=== PATIENT | female | born 1985 | race Caucasian/White ===

== ENCOUNTER 2019-04-05 12:42 | Emergency (ER) | payer OTHER ==
[~2019-04-05] VITALS: Ht 172.7 cm; Wt 57.0 kg
--- NOTE | 2019-04-05 14:30 | NUR ---
relieving RN for break, chemical lab technician at bedside, pt did amb with steady gait to restroom, UA sent to lab to hold, no orders yet
--- NOTE | 2019-04-05 14:34 | NUR ---
Berna pinon in [facility] - 04/05/19 at [address] TAYLOR AWARE NO IV ACCESS AT THIS TIME
[2019-04-05 14:42] LABS: BASOPHILS % (AUTO) 0.6 % (0-1); EOSINOPHILS # (AUTO) 0.2 X10'3 (0-0.9); EOSINOPHILS % (AUTO) 2.1 % (0-6); HEMATOCRIT 41.9 % (35.0-45.0); HEMOGLOBIN 14.3 g/dl (12.0-16.0); LYMPHOCYTES # (AUTO) 1.6 X10'3 (1.1-4.8); LYMPHOCYTES % (AUTO) 21.1 % (21-51); MEAN CORPUSCULAR HEMOGLOBIN 30.4 PG (27.0-31.0); MEAN CORPUSCULAR HGB CONC 34.2 g/dL (33.0-36.5); MEAN CORPUSCULAR VOLUME 88.9 FL (78-98); MEAN PLATELET VOLUME 7.9 FL (7.4-10.4); MONOCYTES # (AUTO) 0.7 X10'3 (0-0.9); MONOCYTES % (AUTO) 9.6 % (2-12); NEUTROPHILS # (AUTO) 4.9 X10'3 (1.8-7.7); NEUTROPHILS % (AUTO) 66.6 % (42-75); PLATELET COUNT 258 X10'3 (140-440); RED BLOOD COUNT 4.72 X10'6 (4.20-5.60); RED CELL DISTRIBUTION WIDTH 12.6 % (11.5-14.5); WHITE BLOOD COUNT 7.4 X10'3 (4.5-11.0)
[2019-04-05 15:02] LABS: ALANINE AMINOTRANSFERASE 30 U/L (12-78); ALBUMIN 4.5 G/DL (3.4-5.0); ALBUMIN/GLOBULIN RATIO 1.3 (1.1-1.5); ALKALINE PHOSPHATASE 68 IU/L (46-116); ANION GAP 9 (8-16); ASPARTATE AMINO TRANSFERASE 18 U/L (10-37); BILIRUBIN,TOTAL 0.7 MG/DL (0.1-1.0); BLOOD UREA NITROGEN 10 MG/DL (7-18); BUN/CREATININE RATIO 13.2 (6.6-38.0); CHLORIDE 104 MMOL/L (99-107); CREATININE 0.76 MG/DL (0.40-0.90); GLUCOSE 90 MG/DL (70-104); POTASSIUM 3.1 MMOL/L (3.5-5.1); SODIUM 142 MMOL/L (135-145); TOTAL CARBON DIOXIDE 29.4 MMOL/L (24-32); TOTAL PROTEIN 8.1 G/DL (6.4-8.2); eGFR 87 ML/MIN
[2019-04-05 15:07] LABS: HCG SERUM QL NEGATIVE
[2019-04-05 15:18] LABS: URINE AMPHETAMINE SCREEN NEGATIVE (Neg); URINE BARBITUATE SCREEN NEGATIVE (Neg); URINE BENZODIAZEPINES SCREEN NEGATIVE (Neg); URINE CANNABINOID SCREEN NEGATIVE (Neg); URINE COCAINE SCREEN NEGATIVE (Neg); URINE METHADONE SCREEN NEGATIVE (Neg); URINE OPIATE SCREEN NEGATIVE (Neg); URINE PHENCYCLIDINE SCREEN NEGATIVE (Neg)
[2019-04-05] MEDS ORDERED: potassium Cl 20 mEq SR tablet PO STA (15:18)
[2019-04-05 16:03] VITALS: BP 121/85
== END 2019-04-05 16:06 | disposition home or self-care (01) ==
LOC: ER 12:43
DX: G43.409 Hemiplegic migraine, not intractable, without status migrainosus (principal); R00.0 Tachycardia, unspecified; R42 Dizziness and giddiness
CPT/HCPCS: 36415; 80053; 80305; 84443; 84484; 84703; 85025; 93005; 99284

== ENCOUNTER 2020-03-24 13:45 | Outpatient (CLI) | payer MEDICAID ==
[2020-03-24 14:37] LABS: BASOPHILS % (AUTO) 0.6 % (0-1); EOSINOPHILS # (AUTO) 0.3 X10'3 (0-0.9); EOSINOPHILS % (AUTO) 3.8 % (0-6); HEMATOCRIT 40.5 % (35.0-45.0); HEMOGLOBIN 13.8 g/dl (12.0-16.0); LYMPHOCYTES # (AUTO) 2.3 X10'3 (1.1-4.8); LYMPHOCYTES % (AUTO) 31.9 % (21-51); MEAN CORPUSCULAR HEMOGLOBIN 30.4 PG (27.0-31.0); MEAN CORPUSCULAR VOLUME 89.6 FL (78-98); MEAN PLATELET VOLUME 8.5 FL (7.4-10.4); MONOCYTES # (AUTO) 0.8 X10'3 (0-0.9); MONOCYTES % (AUTO) 10.7 % (2-12); NEUTROPHILS # (AUTO) 3.7 X10'3 (1.8-7.7); PLATELET COUNT 296 X10'3 (140-440); RED BLOOD COUNT 4.52 X10'6 (4.20-5.60); WHITE BLOOD COUNT 7.1 X10'3 (4.5-11.0)
[2020-03-24 14:48] LABS: ALBUMIN 4.3 G/DL (3.4-5.0); ANION GAP 7 (8-16); BLOOD UREA NITROGEN 11 MG/DL (7-18); BUN/CREATININE RATIO 12.8 (6.6-38.0); CALCIUM 9.4 MG/DL (8.5-10.1); CHLORIDE 107 MMOL/L (99-107); CREATININE 0.86 MG/DL (0.40-0.90); GLUCOSE 93 MG/DL (70-104); POTASSIUM 3.2 MMOL/L (3.5-5.1); SODIUM 146 MMOL/L (135-145); eGFR 75 ML/MIN
== END 2020-03-24 23:59 | disposition home or self-care (01) ==
LOC: LAB 13:45
PROVIDERS: ATTEND Podiatrist Foot & Ankle Surgery
DX: Z01.812 Encounter for preprocedural laboratory examination (principal); N39.0 Urinary tract infection, site not specified; E55.9 Vitamin D deficiency, unspecified
CPT/HCPCS: 36415; 80048; 85025

== ENCOUNTER 2020-07-16 05:55 | Day surgery (SDC) | payer MEDICAID ==
[2020-07-09 10:58] LABS: BASOPHILS % (AUTO) 0.8 % (0-1); EOSINOPHILS # (AUTO) 0.3 X10'3 (0-0.9); EOSINOPHILS % (AUTO) 4.9 % (0-6); LYMPHOCYTES # (AUTO) 1.3 X10'3 (1.1-4.8); LYMPHOCYTES % (AUTO) 20.4 % (21-51); MEAN CORPUSCULAR HEMOGLOBIN 29.8 PG (27.0-31.0); MEAN CORPUSCULAR HGB CONC 33.3 g/dL (33.0-36.5); MEAN CORPUSCULAR VOLUME 89.7 FL (78-98); MEAN PLATELET VOLUME 8.3 FL (7.4-10.4); MONOCYTES # (AUTO) 0.5 X10'3 (0-0.9); MONOCYTES % (AUTO) 8.1 % (2-12); NEUTROPHILS # (AUTO) 4.1 X10'3 (1.8-7.7); NEUTROPHILS % (AUTO) 65.8 % (42-75); PRE OP HEMATOCRIT 42.6 % (35.0-45.0); PRE OP HEMOGLOBIN 14.2 g/dL (12.0-16.0); PRE OP PLATELET COUNT 275 X10'3 (140-440); RED BLOOD COUNT 4.75 X10'6 (4.20-5.60); RED CELL DISTRIBUTION WIDTH 13.4 % (11.5-14.5)
[2020-07-09 11:01] LABS: ALBUMIN 4.2 G/DL (3.4-5.0); ALBUMIN/GLOBULIN RATIO 1.2 (1.1-1.5); ALKALINE PHOSPHATASE 79 IU/L (46-116); BLOOD UREA NITROGEN 11 MG/DL (7-18); BUN/CREATININE RATIO 14.7 (6.6-38.0); CALCIUM 8.9 MG/DL (8.5-10.1); CHLORIDE 106 MMOL/L (99-107); CREATININE 0.75 MG/DL (0.40-0.90); PRE OP ALT 19 U/L (30-65); PRE OP ANION GAP 7 (8-16); PRE OP AST 16 U/L (10-37); PRE OP BILIRUB, TOTAL 0.5 MG/DL (0.0-1.0); PRE OP GLUCOSE 99 MG/DL (70-104); PRE OP POTASSIUM 4.6 MMOL/L (3.4-5.1); PRE OP SODIUM 141 MMOL/L (135-145); TOTAL CARBON DIOXIDE 28.3 MMOL/L (24-32); TOTAL PROTEIN 7.8 G/DL (6.4-8.2); eGFR 88 ML/MIN
[2020-07-09 11:06] LABS: HCG SERUM QL NEGATIVE
[~2020-07-16] VITALS: Ht 172.7 cm; Wt 62.0 kg
[2020-07-16] VITALS (10 sets, daily range): BP systolic 93–130; BP diastolic 52–77
[~2020-07-16 05:55] MED LIST: CETI10TA14 PO; CYCL5TAB PO; DOCUMENT DATE & TIME OF BETA-BLOCKER PO ONE; GABA300C PO; METO-384 PO; ONDA8TAB13 PO; OXYC1TAB17 PO; RIVA20TA PO; SOLR150T PO; ceFAZolin 2gm in dextrose, iso 50 ML IV ONE; famotidine 20mg tablet PO ONE; ringers solution, lacted 1,000 ML IV SCH
[2020-07-16] MEDS ORDERED: bacitracin 15gm ointment TP ONE (06:40)
[2020-07-16] MEDS ORDERED: ondansetron/PF 4mg/2ml inj ONE (06:46)
[2020-07-16] MEDS ORDERED: midazolam 1 mg/ML 2ml injection ONE (06:46)
[2020-07-16] MEDS ORDERED: fentaNYL/PF 50MCG/1 ML 2ML syringe ONE ×2 (06:46→09:59)
[2020-07-16] MEDS ORDERED: dexamethasone sod phosphate 4mg/ml inj. ONE (06:46)
[2020-07-16] MEDS ORDERED: propofol inj 20 ML IV ONE (06:47)
[2020-07-16] MEDS ORDERED: LIDOcaine 2% (20mg/ml) 5ml vial ONE (06:47)
[2020-07-16] MEDS ORDERED: sevoflurane 250ml liquid IH ONE (06:54)
[2020-07-16] MEDS ORDERED: dexmedetomidin/NS 400mcg/100mL bag IV ONE (06:54)
[2020-07-16] MEDS ORDERED: proCHLORperazine 10 MG/2 ml inj IV PRN (06:55)
[2020-07-16] MEDS ORDERED: ringers solution, lacted 1,000 ML IV SCH (06:55)
[2020-07-16] MEDS ORDERED: labetalol 20mg/4ml (5mg/ml) syringe IV PRN (06:55)
[2020-07-16] MEDS ORDERED: fentaNYL/PF 50MCG/1 ML 2ML syringe IV PRN ×2 (06:55)
[2020-07-16] MEDS ORDERED: hydrALAZINE 20mg/ml inj. IV PRN (06:55)
[2020-07-16] MEDS ORDERED: ketorolac trometh. 30mg/ml inj. IV ONE (06:55)
[2020-07-16] MEDS ORDERED: ondansetron/PF 4mg/2ml inj IV PRN (06:55)
[2020-07-16] MEDS ORDERED: ROPIVAcaine 0.5% (5mg/ml) 30ml vial ONE ×2 (07:00)
[2020-07-16] MEDS ORDERED: ROPIVAcaine 0.2% (10 MG/5 ML) BOLUS INJECTION POPLITEAL PRN (07:00)
[2020-07-16] MEDS ORDERED: ROPIVAcaine 0.2%/PF PUMP/bolus 550 ML POPLITEAL SCH (07:45)
[2020-07-16] MEDS ORDERED: ketorolac trometh. 30mg/ml inj. ONE (09:53)
[2020-07-16] MEDS ORDERED: acetaminophen 1,000mg/100ml IV 100 ML IV ONE (09:54)
--- NOTE | 2020-07-16 10:20 | NUR ---
Received from OR via [facility], accompanied by Anesthesiologist CAROL and report given by Anesthesiolgist. PT. AROUSABLE TO VERBAL STIMULI. O2 AT 10 L VIA FACE MASK. VSS. DENIES PAIN AT THIS TIME. IV 18G IN RIGHT AC. CDI. LR INFUSING AT 100 ML/HR. Miller TANG DRESSING CDI, ELEVATED ABOVE HEART. WARM TOES AND GOOD CAP REFILL NOTED. ON Q CATHETER IN PLACE IN RIGHT THIGH. CDI. Addendum: 07/16/20 at 1048 by Nya Neumann RN Amended: Links added.
--- NOTE | 2020-07-16 11:14 | NUR ---
Received from OR via [facility], accompanied by Anesthesiologist BECK and report given by Anesthesiolgist. PT. VSS. 3 L O2 VIA MASK. LR INFUSING INTO R. HAND 18 G. IV. SITE CDI. L. WRIST DRESSING CDI. FINGERS WARM WITH GOOD CAP REFILL. PT. DENIES PAIN. ALERT. MOVES ALL EXTREMITIES, SENSATION INTACT. DENTURES/ GLASSES ON [place]. ICE BAG APPLIED. WRIST ABOVE HEART. Addendum: 07/16/20 at 1210 by Nya Neumann RN Amended: Links added.
--- NOTE | 2020-07-16 12:00 | NUR ---
PT. DISCHARGED TO DAD VIA WC TO FRONT ENTRANCE ACCOMPANIED BY NURSE. PT. DENIED PAIN, VSS. IV REMOVED. DRESSING ON R. LE CDI. WARM AND SENSATION POSITIVE. ON Q PUMP IN PLACE. INSTRUCTIONS PROVIDED ALONG WITH ALL OTHER DISCHARGE INSTRUCTIONS, PT STATES UNDERSTANDING. PT. LEFT WITH PURSE, IOLD HARDWARE ALL INSTRUCTIONS. OPPORTUNITY PROVIDED FOR QUESTIONS. ALL QUESTIONS ANSWERED. MD WILL BE NOTIFIED THAT PT REQUESTS PHONE CALL WHEN AVAILABLE. ALL DISCHARGE CRITERIA MET. Addendum: 07/16/20 at 1208 by Nya Neumann RN Amended: Links added.
== END 2020-07-16 12:00 | disposition home or self-care (01) ==
LOC: PAS 05:55
PROVIDERS: ATTEND Podiatrist Foot & Ankle Surgery
DX: M25.371 Other instability, right ankle (principal); M65.871 Other synovitis and tenosynovitis, right ankle and foot; T84.84XA Pain due to internal orthopedic prosthetic devices, implants and grafts, initial encounter; M77.31 Calcaneal spur, right foot; G89.18 Other acute postprocedural pain; M21.41 Flat foot [pes planus] (acquired), right foot; J45.909 Unspecified asthma, uncomplicated; G43.909 Migraine, unspecified, not intractable, without status migrainosus; F41.9 Anxiety disorder, unspecified; G89.4 Chronic pain syndrome; Z86.711 Personal history of pulmonary embolism; Z79.899 Other long term (current) drug therapy; Z88.8 Allergy status to other drugs, medicaments and biological substances; Z88.5 Allergy status to narcotic agent; Z91.040 Latex allergy status; Z86.718 Personal history of other venous thrombosis and embolism; Z98.890 Other specified postprocedural states; Z20.822 Contact with and (suspected) exposure to COVID-19; Y83.8 Other surgical procedures as the cause of abnormal reaction of the patient, or of later complication, without mention of misadventure at the time of the procedure; Y92.89 Other specified places as the place of occurrence of the external cause
CPT/HCPCS: 20680; 27698; 28119; 28300; 29895; 36415; 64446; 64448; 73620; 76000; 76937; 80053; 82948; 84703; 85025; A6222; A6223; C1713; C1762; J0131; J1100; J1885; J2001; J2250; J2405; J2704; J2795; J3010; J7120; U0003; A4618; A6449; A7000

== ENCOUNTER 2021-06-03 11:34 | Emergency (ER) | payer MEDICAID ==
[~2021-06-03] VITALS: Ht 172.7 cm; Wt 61.0 kg
[~2021-06-03 11:34] MED LIST changes: -DOCUMENT DATE & TIME OF BETA-BLOCKER PO ONE; -ceFAZolin 2gm in dextrose, iso 50 ML IV ONE; -famotidine 20mg tablet PO ONE; -ringers solution, lacted 1,000 ML IV SCH
[2021-06-03 11:46] VITALS: BP 121/75
[2021-06-03] MEDS ORDERED: ketorolac trometh inj. 60 MG/2 ML VIAL IM ONE (12:35)
[2021-06-03] MEDS ORDERED: cyclobenzaprine 10mg tablet PO ONE (12:35)
== END 2021-06-03 13:34 | disposition home or self-care (01) ==
LOC: ER 11:34
DX: M54.50 Low back pain, unspecified (principal); G89.29 Other chronic pain; Z98.890 Other specified postprocedural states; Z79.899 Other long term (current) drug therapy
CPT/HCPCS: 96372; 99283; J1885

== ENCOUNTER 2021-09-26 19:04 | Emergency (ER) | payer MEDICAID ==
[~2021-09-26] VITALS: Ht 172.7 cm; Wt 61.4 kg
[2021-09-26] MEDS ORDERED: acetaminophen 325mg tablet PO ONE (19:25)
[2021-09-26] MEDS ORDERED: NIRM1TAB PO (19:52)
[2021-09-26 20:25] VITALS: BP 120/80
== END 2021-09-26 20:29 | disposition home or self-care (01) ==
LOC: ER 19:05
DX: U07.1 COVID-19 (principal); G89.29 Other chronic pain; Z98.890 Other specified postprocedural states; Z79.899 Other long term (current) drug therapy
CPT/HCPCS: 71045; 87635; 99284; C9803

== ENCOUNTER 2022-09-18 08:18 | Day surgery (SDC) | payer MEDICAID ==
[2022-09-12 15:35] LABS: BASOPHILS % (AUTO) 0.4 % (0-1); EOSINOPHILS # (AUTO) 0.3 X10'3 (0-0.9); LYMPHOCYTES # (AUTO) 1.4 X10'3 (1.1-4.8); LYMPHOCYTES % (AUTO) 21.1 % (21-51); MEAN CORPUSCULAR HEMOGLOBIN 31.7 PG (27.0-31.0); MEAN CORPUSCULAR HGB CONC 33.4 g/dL (33.0-36.5); MEAN CORPUSCULAR VOLUME 95.1 FL (78-98); MEAN PLATELET VOLUME 8.4 FL (7.4-10.4); MONOCYTES # (AUTO) 0.8 X10'3 (0-0.9); MONOCYTES % (AUTO) 11.1 % (2-12); NEUTROPHILS # (AUTO) 4.2 X10'3 (1.8-7.7); NEUTROPHILS % (AUTO) 62.4 % (42-75); PRE OP HEMATOCRIT 38.9 % (35.0-45.0); PRE OP PLATELET COUNT 273 X10'3 (140-440)
[2022-09-12 15:50] LABS: ALBUMIN/GLOBULIN RATIO 1.5 (1.1-1.5); ALKALINE PHOSPHATASE 66 IU/L (46-116); BLOOD UREA NITROGEN 11 MG/DL (7-18); BUN/CREATININE RATIO 15.3 (10.0-20.0); CALCIUM 8.9 MG/DL (8.5-10.1); CHLORIDE 106 MMOL/L (99-107); CREATININE 0.72 MG/DL (0.40-0.90); PRE OP ALT 17 U/L (30-65); PRE OP ANION GAP 4 (8-16); PRE OP AST 12 U/L (10-37); PRE OP BILIRUB, TOTAL 0.5 MG/DL (0.0-1.0); PRE OP GLUCOSE 95 MG/DL (70-104); PRE OP POTASSIUM 4.1 MMOL/L (3.4-5.1); PRE OP SODIUM 142 MMOL/L (135-145); TOTAL PROTEIN 6.7 G/DL (6.4-8.2); eGFR > 90 ML/MIN
[2022-09-18] VITALS (10 sets, daily range): BP systolic 109–128; BP diastolic 67–99
[~2022-09-18] VITALS: Ht 172.7 cm; Wt 58.5 kg
[~2022-09-18 08:18] MED LIST changes: +DIFL5DRO6 EACHEYE; +DOCUMENT DATE & TIME OF BETA-BLOCKER PO ONE; +IBUPROFEN PO; -OXYC1TAB17 PO; -RIVA20TA PO; +VALA10002 PO; +cefazolin 2gm/D5W 100mL 100 ML IV ONE; +clindamycin-Cleocin 900mg/D5W 50 ML IV ONE; +famotidine 20mg tablet PO ONE; +ringers solution, lacted 1,000 ML IV SCH
[2022-09-18] MEDS ORDERED: ondansetron/PF 4mg/2ml inj IV PRN (09:30)
[2022-09-18] MEDS ORDERED: acetaminophen 1,000mg/100ml IV 100 ML IV PRN (09:30)
[2022-09-18] MEDS ORDERED: fentaNYL/PF 50MCG/1 ML 2ML syringe IV PRN ×2 (09:30)
[2022-09-18] MEDS ORDERED: hydrALAZINE 20mg/ml inj. IV PRN (09:30)
[2022-09-18] MEDS ORDERED: labetalol 20mg/4ml (5mg/ml) syringe IV PRN (09:30)
[2022-09-18] MEDS ORDERED: ringers solution, lacted 1,000 ML IV SCH (09:30)
[2022-09-18] MEDS ORDERED: proCHLORperazine 10 MG/2 ml inj IV PRN (09:30)
[2022-09-18] MEDS ORDERED: BUPIVAcaine/PF 2.5mg/ml (0.25%) 10ml vial ONE (10:06)
[2022-09-18] MEDS ORDERED: LIDOcaine 0.5% (5mg/ml) 50ml vial ONE (10:18)
[2022-09-18] MEDS ORDERED: midazolam 1 mg/ML 2ml injection ONE (11:03)
[2022-09-18] MEDS ORDERED: fentaNYL/PF 50MCG/1 ML 2ML syringe ONE (11:03)
[2022-09-18] MEDS ORDERED: propofol inj 20 ML IV ONE ×2 (11:18)
--- NOTE | 2022-09-18 11:57 | NUR ---
Received from OR via BED, accompanied by Anesthesiologist and report given by Anesthesiologist. PATIENT WAKING UP, NO S/S OF PAIN OR NAUSEA, V/S WNL, 20G TO RIGHT WRIST, LEFT WRIST MILADY BANDAGE DRESSING CDI. ICE APPLIED AND LEFT ARM ELEVATED. WILL CONTINUE TO MONITOR. Addendum: 09/18/22 at 1215 by Shea Lewis RN Amended: Links added.
[2022-09-18] MEDS ORDERED: ketorolac trometh. 30mg/ml inj. IV ONE (12:25)
--- NOTE | 2022-09-18 13:17 | NUR ---
ABLE TO SAFELY AMBULATE AND TRANSFER SELF. IV TAKEN OUT WITHOUT ANY COMPLICATIONS. ALL DISCHARGE INSTRUCTIONS COVERED WITH PATIENT AND ALL QUESTIONS ANSWERED. PATIENT TAKEN OUT VIA WHEELCHAIR TO PERSONAL VEHICLE WHERE FAMILY/FRIEND DROVE PATIENT HOME. Addendum: 09/18/22 at 1348 by Kaylee Rick RN, RN Amended: Links added.
== END 2022-09-18 13:17 | disposition home or self-care (01) ==
LOC: PAS 08:18
PROVIDERS: ATTEND Orthopaedic Surgery Hand Surgery
DX: G56.02 Carpal tunnel syndrome, left upper limb (principal); M65.842 Other synovitis and tenosynovitis, left hand; I10 Essential (primary) hypertension; J45.909 Unspecified asthma, uncomplicated; G47.419 Narcolepsy without cataplexy; M19.90 Unspecified osteoarthritis, unspecified site; Z91.040 Latex allergy status; Z88.2 Allergy status to sulfonamides; Z88.5 Allergy status to narcotic agent; Z88.8 Allergy status to other drugs, medicaments and biological substances; Z91.09 Other allergy status, other than to drugs and biological substances; Z98.890 Other specified postprocedural states; Z86.711 Personal history of pulmonary embolism; Z79.899 Other long term (current) drug therapy
CPT/HCPCS: 29846; 29848; 36415; 80053; 82948; 85025; J0131; J0690; J1885; J2250; J2704; J3010; J3490; J7030; J7120; Z7506; Z7508; Z7512; A4215; A4618; A6449; A7000